=== PATIENT | female | born 2000 | race Caucasian/White ===

== ENCOUNTER 2020-06-05 20:00 | Emergency (ER) | payer OTHER ==
[~2020-06-05] VITALS: Ht 149.9 cm; Wt 62.1 kg
[2020-06-05 20:24] VITALS: Ht 149.9 cm; Wt 62.1 kg
[2020-06-05 21:48] VITALS: BP 152/100
== END 2020-06-05 21:48 | disposition home or self-care (01) ==
LOC: ED 20:00
DX: L50.9 Urticaria, unspecified (principal); R03.0 Elevated blood-pressure reading, without diagnosis of hypertension
CPT/HCPCS: J2930; Q0163